=== PATIENT | female | born 1995 | race African-American/Black ===

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

== ENCOUNTER 2017-01-09 13:16 | Emergency (ER) | payer SELFPAY ==
[2017-01-09 13:25] VITALS: BP 132/82; BMI 37.1
[2017-01-09] MEDS ORDERED: MOTRIN TAB 800 MG PO ONE ×2 (14:22→14:25)
--- NOTE | 2017-01-09 14:49 | DR.FBACK ---
HPI - Time Seen Time seen: 14:15 - PCP Primary Care Physician: AGUSTIN - HPI Comment HPI Comment: GETTING WORSE. DENIES FEVER, TRAUMA OR DYSURIA. - Complaint Chief Complaint Doctor Comments: LOWER BACK PAIN TIMES FEW DAYS. Chief Complaint:: PATIENT HAS HAD BACKPAIN FOR THE LAST COUPLE OF DAYS BUT TODAY HAS BEEN THE WORSE. - Reviewed Nurses Notes Review: Yes - Source History Provided: Patient - Mode of Arrival Mode of Arrival: Ambulatory - Timing Onset of Chief Complaint: 01/05/17 - Duration Duration: Constant Duration: Days - Location Back Pain Location: BACK Radiation To: None - Severity Severity: Moderate - Quality Quality: Aching, Sharp - Context Onset: Unknown Circumstance: Spontaneous History of: None - Modifying Factors Worsened By: None - Associated Signs and Symptoms Back Pain Symptoms: None Numbness: None Weakness: None PMH - PMH Past Medical History: No Past Surgical History: No Surgical History: No History - Family History History of Family Medical Conditions: Yes Family Medical History: Hypertension - Social History Does patient currently use any type of tobacco product: No Have you used tobacco products in the last 12 months: No Type of Tobacco Use: None Does any household member use tobacco: No Alcohol Use: None Do you use any recreational Drugs:: No Lives With: Family Lives Where: Home - infectious screening In the last 2 months have you had wt loss of >10#?: NO Have you had fever, night sweats or hemotysis?: No Have you traveled outside the country in the last 6 months?: No Isolation: Standard ROS - Review of Systems Constitutional: No Symptoms Reported Eyes: No Symptoms Reported ENTM: No Symptoms Reported Respiratoy: No Symptoms Reported Cardiovascular: No Symptoms Reported Gastrointestinal/Abdominal: No Symptoms Reported Genitourinary: No Symptoms Reported Neurological: No Symptoms Reported Musculoskeletal: Back Pain (LOWER BACK), Muscle Pain Integumentary: No Symptoms Reported Hematologic/Lymphatic: No Symptoms Reported Endocrine: No Symptoms Reported All Other Systems: Reviewed and Negative PE - Vitals Vital Signs: Temp Pulse Resp BP Pulse Ox 01/09/17 13:18 98.5 F 85 20 132/82 100 09/29/16 13:16 132/64 - General Limitations: No Limitations General Appearance: Alert - Head Head Exam: Normal Inspection - Eyes Eye exam: Normal Appearance - ENT ENT Exam: Normal External Ear Exam - Chest Chest Inspection: Symmetric Chest Wall Rise - Respiratory Respiratory Exam: Normal Lung Sounds Bilat Respiratory Exam: Bilateral Clear to Auscultation - Cardiovascular Cardiovascular Exam: Regular Rate, Normal Rhythm, Normal Heart Sounds - Abdominal Exam Abdominal Exam: Normal Bowel Sounds, Soft. negative: Tenderness - Genitourinary External Exam: Female: Deferred : Speculum Exam (Female): Deferred : Bimanual Exam (female): Deferred - Extremities Extremities Exam: Normal Inspection - Back Back Exam: Paraspinal Tenderness (LOWER BACK) - Neurological Neurological Exam: Alert, Oriented X3 - Psychiatric Psychiatric Exam: Normal Affect, Normal Mood - Skin Skin Exam: Normal Color MDM - Differential Diagnosis Differential Diagnosis: Musculoskeletal Pain, Pyelonephritis, Strain, Urolithiasis Course - Treatment Treatment: SEE ORDERS. - Education/Counseling Education/Counseling: Patient, Education Educated On: Treatment, Diagnosis, Needs for Follow Up ROR - Labs Reviewed Laboratory Results Reviewed?: Yes Laboratory: HCG, Qual Negative <10 mIU/mL 01/09/17 14:45 Specimen Type Clean catch urine 01/09/17 14:39 Urine Color Yellow (YELLOW) 01/09/17 14:39 Urine Appearance Slightly hazy (CLEAR) 01/09/17 14:39 Urine pH 5.0 (5.0 - 8.0) 01/09/17 14:39 Ur Specific [place] 1.015 (1.000-1.030) 01/09/17 14:39 Urine Protein Negative (NEGATIVE) 01/09/17 14:39 Urine Glucose (UA) Negative (NEGATIVE) 01/09/17 14:39 Urine Ketones Negative (NEGATIVE) 01/09/17 14:39 Urine Occult Blood Negative (NEGATIVE) 01/09/17 14:39 Urine Nitrite Negative (NEGATIVE) 01/09/17 14:39 Urine Bilirubin Negative (NEGATIVE) 01/09/17 14:39 Urine Urobilinogen Normal (NORMAL) 01/09/17 14:39 Ur Leukocyte Esterase 1+ (NEGATIVE) 01/09/17 14:39 Urine RBC None seen /HPF (NEGATIVE) 01/09/17 14:39 Urine WBC 6-8 /HPF (NEGATIVE) 01/09/17 14:39 Ur Squamous Epith Cells Moderate /HPF (NEGATIVE) 01/09/17 14:39 Urine Bacteria 2+ /HPF (NEGATIVE) 01/09/17 14:39 Ur Culture Indicated? Yes/culture set up 01/09/17 14:39 - XRAY XRAY Interpreted by: Radiologist XRAY Findings: REPORT DISCUSS WITH PATIENT. - Diagnosis Discharge Problem: Urinary tract stones Back strain Qualifiers: Encounter type: initial encounter Qualified Code(s): S39.012A - Strain of muscle, fascia and tendon of lower back, initial encounter - Discharge Plan Disposition: HOME, SELF-CARE Condition: Stable Prescriptions: Cyclobenzaprine HCl [FLEXERIL 10 MG *] 10 mg PO TID PRN #20 tab PRN Reason: Ibuprofen [MOTRIN TAB 600 MG *] 600 mg PO TID PRN #20 tab PRN Reason: Pain/Inflammation Sulfamethoxazole-Trimethoprim [BACTRIM DS TAB 800/160 MG *] 1 tab PO BID #20 tab - Follow ups/Referrals Follow ups/Referrals: NFD,None [Primary Care Provider] - 3 days - Instructions Instructions: Low Back Sprain With Rehab-SportsMed, Urinary Tract Infection, Adult, [id number] Additional Instructions: RETURN TO ED IF WORSE.
[2017-01-09 15:02] LABS: BILIRUBIN,URINE NEGATIVE (NEGATIVE); BLOOD/HEMOGLOBIN,URINE NEGATIVE (NEGATIVE); GLUCOSE, URINE NEGATIVE (NEGATIVE); KETONES,URINE NEGATIVE (NEGATIVE); LEUKOCYTE ESTERASE ,URINE 1+ (NEGATIVE); NITRITES,URINE NEGATIVE (NEGATIVE); PROTEIN,URINE NEGATIVE (NEGATIVE); UROBILINOGEN,URINE NORMAL (NORMAL)
[2017-01-09 15:05] LABS: SERUM PREGNANCY TEST, QUAL NEGATIVE <10 mIU/mL
[2017-01-09 15:10] LABS: APPEARANCE,URINE SLIGHTLY HAZY (CLEAR); BACTERIA,URINE 2+ /HPF (NEGATIVE); COLOR,URINE YELLOW (YELLOW); RBC,URINE NONE SEEN /HPF (NEGATIVE); SQUAMOUS EPITHELIAL CELL,UR MODERATE /HPF (NEGATIVE)
== END 2017-01-09 16:10 | disposition home or self-care (01) ==
LOC: ER 13:22
DX: S39.012A Strain of muscle, fascia and tendon of lower back, initial encounter (principal); N21.0 Calculus in bladder; Y33.XXXA Other specified events, undetermined intent, initial encounter
CPT/HCPCS: 36415; 72100; 81001; 84703; 87086; 99282

== ENCOUNTER 2022-02-05 06:34 | Inpatient (IN) ==
[2022-02-05] MEDS ORDERED: PITOCIN IVP ONE (06:37)
[2022-02-05] MEDS ORDERED: MORPHINE SULFATE INJ 2 MG INJ IVP PRN (06:37)
[2022-02-05] MEDS ORDERED: PHENERGAN INJ 25 MG IM PRN ×2 (06:37→17:39)
[2022-02-05] MEDS ORDERED: AMPICILLIN VIAL 2 GRAM 2 G in NS 100 ML IV + SPIKE MINIBAG* 100 ML IV SCH (06:37)
[2022-02-05] MEDS ORDERED: NUBAIN INJ 20 MG AMP IVP PRN (06:37)
[2022-02-05] MEDS ORDERED: REGLAN INJ 10 MG VIAL IVP PRN ×3 (06:37→19:36)
[2022-02-05] MEDS ORDERED: D5 LR + PITOCIN 10 UNITS/L 10 UNITS/1,000 ML BAG IV PRN (06:37)
[2022-02-05] MEDS ORDERED: AMPICILLIN VIAL 2 GRAM ONE (06:40)
[2022-02-05] MEDS ORDERED: NS 100 ML IV 100 ML ONE ×4 (06:40→17:16)
[2022-02-05] MEDS ORDERED: D5 1/2 NS 1,000 ML 1,000 ML IV ONE (06:42)
[2022-02-05] MEDS ORDERED: BETADINE SOLN ONE (06:42)
[2022-02-05] MEDS ORDERED: D5 LR + PITOCIN 10 UNITS/L 10 UNITS/1,000 ML BAG IV ONE (06:43)
[2022-02-05] MEDS ORDERED: D5 1/2 NS 1,000 mL + PITOCIN 20 UNITS/L IV 20 UNITS/1,000 ML BAG IV ONE (06:43)
[2022-02-05] MEDS: D5 1/2 NS 1,000 ML 1,000 ML IV SCH ×2 (07:05→18:08)
--- NOTE | 2022-02-05 07:25 | DR.OB ---
OB Quick Note - Assessment/Plan Assessment/Plan: L&D 02/05/22 at 7:15am S-No complaint. O-Afebrile,VSS [id number] with good LTV, +accel, no decel. CTX=none CVX=1cm/50%/-1/VTX AROM with clear fluid. IUPC and FSE placed. A-IUP at 39 0/7 weeks for induction +GBS anemia P-Begin pitocin induction IV ABX in labor for +GBS Anticipate
[2022-02-05] MEDS: VSL#3 PO SCH ×2 (07:43→15:32)
[2022-02-05] MEDS: AMPICILLIN VIAL 1 GRAM 1 G in NS 50 ML IV 50 ML IV SCH ×2 (11:05→15:05)
[2022-02-05] MEDS ORDERED: AMPICILLIN VIAL 1 GRAM ONE ×2 (11:10→14:54)
[2022-02-05] MEDS ORDERED: NS 500 ML IV 500 ML IV ONE (11:13)
[2022-02-05] MEDS ORDERED: STADOL INJ ONE ×2 (11:21→15:33)
[2022-02-05] MEDS ORDERED: LR 1,000 ML IV 1,000 ML IV ONE ×3 (11:26→17:16)
[2022-02-05] MEDS ORDERED: ZOFRAN INJ 4 MG VIAL IVP ONE (11:30)
[2022-02-05] MEDS ORDERED: ZOFRAN INJ 4 MG VIAL ONE (11:32)
[2022-02-05] MEDS: STADOL INJ IVP PRN ×2 (11:35→15:35)
[2022-02-05] MEDS ORDERED: AMPICILLIN VIAL 2 GRAM 2 G in NS 100 ML IV 100 ML IV SCH (14:00)
[2022-02-05] MEDS ORDERED: FENTANYL VIAL INJ 100 mcg ONE (15:42)
[2022-02-05] MEDS ORDERED: NAROPIN EPIDURAL 0.2% 100 ML ONE (15:42)
--- NOTE | 2022-02-05 16:44 | DR.OB ---
OB Quick Note - Assessment/Plan Assessment/Plan: L&D 02/05/22 at 4:40am Pitocin=18mu/min. S-No complaint. s/p epidural. O-Afebrile,VSS [id number] with good LTV, +accel, no decel. CTX=q 1 1/2 min., about 45-55mmHg CVX=4cm/50%/-1 A-IUP at 39 0/7 weeks for induction +GBS anemia P-Cont. pitocin induction. Not much change, but pt. desires to cont. Cont. IV ABX in labor Anticipate
[2022-02-05] MEDS ORDERED: ANCEF VIAL 1 GRAM ONE (17:16)
--- NOTE | 2022-02-05 17:20 | DR.OB ---
OB Quick Note - Assessment/Plan Assessment/Plan: L&D 02/05/22 at 5:15pm Pitocin=20mu/min. Ampicillin S-No complaint. O-Afebrile,VSS [id number] with good LTV, +accel, severe variables noted with some CTX, occ. late variable. CTX=q 1 1/2 min., about 55-65mmHg CVX=4cm/50%/-1/caput (no change) A-IUP at 39 0/7 weeks with no CVX change and non-reassuring FHT P-To C/S
[2022-02-05] MEDS ORDERED: LIDOCAINE 2%-EPI 1:200,000 ONE ×2 (17:22→17:23)
[2022-02-05] MEDS ORDERED: DILAUDID INJ IVP PRN (17:39)
[2022-02-05] MEDS ORDERED: BENADRYL INJ 50 MG VIAL IVP PRN ×2 (17:39→19:36)
[2022-02-05] MEDS ORDERED: ZOFRAN INJ 4 MG VIAL IVP PRN ×2 (17:39→19:36)
[2022-02-05] MEDS ORDERED: BARHEMSYS INJ IVP PRN (17:39)
[2022-02-05] MEDS ORDERED: DILAUDID INJ ONE (17:57)
[2022-02-05] MEDS ORDERED: VERSED ONE ×2 (17:58→18:40)
[2022-02-05] MEDS ORDERED: PITOCIN ONE (18:35)
[2022-02-05] MEDS ORDERED: DIPRIVAN VIAL 20 ML ONE (18:38)
[2022-02-05] MEDS ORDERED: ADACEL or BOOSTRIX TDaP VACCINE IM ONE (19:36)
[2022-02-05] MEDS ORDERED: PERCOCET TAB 5/325 MG PO PRN (19:36)
[2022-02-05] MEDS ORDERED: TORADOL 30 MG VIAL IVP PRN (19:36)
[2022-02-05] MEDS ORDERED: MYLICON TAB 80 MG CHEW PO PRN (19:36)
[2022-02-05] MEDS ORDERED: NARCAN INJ IVP PRN (19:36)
[2022-02-05] MEDS ORDERED: D5 1/2 NS 1,000 ML 1,000 ML with PITOCIN 20 UNITS IV SCH ×2 (20:00)
[2022-02-06 05:38] LABS: HEMATOCRIT 24.3 % (36.0-47.0); HEMOGLOBIN 8.1 g/dL (12.0-16.0)
[2022-02-06] MEDS: PRENATAL PLUS PO SCH (08:14)
[2022-02-06] MEDS: VSL#3 PO SCH (08:14)
[2022-02-06] MEDS: COLACE CAP 100 MG PO SCH ×2 (08:14→20:08)
[2022-02-06] MEDS: PERCOCET TAB 5/325 MG PO PRN ×3 (08:16→20:15)
[2022-02-06] MEDS: BACTROBAN TOPICAL OINT TOP SCH ×2 (13:10→21:02)
[2022-02-06] MEDS: FERROUS GLUCONATE PO SCH (16:41)
[2022-02-06] MEDS: MOTRIN TAB 800 MG PO PRN (21:51)
[2022-02-07] MEDS: BACTROBAN TOPICAL OINT TOP SCH (05:24)
[2022-02-07] MEDS: MOTRIN TAB 800 MG PO PRN (05:25)
[2022-02-07] MEDS: FERROUS GLUCONATE PO SCH (06:01)
[2022-02-07 08:34] VITALS: BP 121/62
[2022-02-07] MEDS: PRENATAL PLUS PO SCH (09:22)
[2022-02-07] MEDS: VSL#3 PO SCH (09:22)
[2022-02-07] MEDS: COLACE CAP 100 MG PO SCH (09:23)
== END 2022-02-07 11:50 | disposition home or self-care (01) | DRG 787 ==
LOC: LD 06:34 → MED/SURG 19:28
PROVIDERS: ADMIT Specialist; ATTEND Specialist
DX: Z3A.39 39 weeks gestation of pregnancy; D50.8 Other iron deficiency anemias; O62.0 Primary inadequate contractions; Z01.818 Encounter for other preprocedural examination; Z37.0 Single live birth; O99.013 Anemia complicating pregnancy, third trimester; B95.1 Streptococcus, group B, as the cause of diseases classified elsewhere; O98.82 Other maternal infectious and parasitic diseases complicating childbirth